=== PATIENT | male | born 1980 | race Caucasian/White ===

== ENCOUNTER 2018-07-14 17:11 | Emergency (ER) | payer SELFPAY, OTHER ==
[2018-07-14] MEDS: SILVER NITRATE SWAB TOP (18:55)
== END 2018-07-14 19:45 | disposition home or self-care (01) ==
LOC: FTE 17:11
DX: I83.022 Varicose veins of left lower extremity with ulcer of calf (principal); L97.229 Non-pressure chronic ulcer of left calf with unspecified severity
CPT/HCPCS: 12001; 99283-25

== ENCOUNTER 2018-07-17 08:16 | Emergency (ER) | payer SELFPAY | END 2018-07-17 09:12 | disposition home or self-care (01) | LOC: FTE 09:12 | DX: I83.029 Varicose veins of left lower extremity with ulcer of unspecified site (principal); L97.929 Non-pressure chronic ulcer of unspecified part of left lower leg with unspecified severity | CPT/HCPCS: 99281 ==

== ENCOUNTER 2018-07-24 15:04 | Emergency (ER) | payer SELFPAY | END 2018-07-24 15:49 | disposition home or self-care (01) | LOC: FTE 15:04 | DX: Z48.02 Encounter for removal of sutures (principal) | CPT/HCPCS: 99281 ==